=== PATIENT | male | born 1995 | race Caucasian/White ===

== ENCOUNTER 2018-09-07 22:56 | Emergency (ER) | payer OTHER, SELFPAY ==
[2018-09-07 22:56] VITALS: BP 148/76; PULSE 77; RESP 18; TEMP 36.8; O2SAT 98; BMI 30.9
--- NOTE | 2018-09-07 23:15 | ED.DCSUM_ITS ---
- ER Visit Summary Date of Service: 09/07/18 Chief Complaint: Dog bite right upper lip History of Present Illness: The patient is a 23 M no significant past medical history. Currently on no medications. Tetanus up-to-date. Patient was playing with his friends dog when the dog got excited and bit him in his right upper lip. This occurred within the last hour. He denies any other injuries. Physical Examination: Well-appearing young man. Vital signs are stable and afebrile. H EENT exam is of irregular laceration of the right upper lip with involvement of vermilion border. There is a moderate sized tissue deficit in which I believe some of the tissue was avulsed and is currently missing. There is mild oozing of blood. This will need to be repaired. There is no dental injury. Neck nontender. Lungs are clear. Heart regular rhythm no murmur. Chest nontender. Abdomen nontender. Patient moving all 4 extremities. No trauma to the extremities. Normal range of motion. Neurologically is awake and alert. The laceration will need closed due to cosmetic reasons. Test Results: None Emergency Department Course and Treatment: Procedure note: Right upper lip laceration with tissue avulsion. Locally anesthetized with plain lidocaine 1%. Cleaned using Shur-Clens washed and irrigated. Explored. Closed using 4 simple interrupted 5-0 Ethilon sutures. Proper hemostasis and wound closure was obtained. Patient understands long-term would expect a good result but if not to his satisfaction he can always follow-up with plastic surgery for wound revision as needed. Treatment Plan: Ice to the area. Keep the wound clean. Suture removal in 7 days. Watch for any signs of infection. Disposition: Discharge Impression: Right upper lip dog bite laceration with ER repair of 2.5 cm This note was generated with [employer] dictation software. It may contain incorrect words, spelling, and punctuation that were not noted in review of the chart prior to signing ED Disposition - Plan for ED Patient: Disposition: Home or Assisted Living Instructions: ED Bite Dog Referrals: Godwin Pena MD [Primary Care Provider] - 10 Day for suture removal Additional Instructions: Clean wound thoroughly twice daily with peroxide and water Ice to the area. Tylenol and Motrin for pain. Suture removal in 7 to 10 days. Watch for any signs of infection
[2018-09-07 23:45] VITALS: BP 132/74; PULSE 72; RESP 18; O2SAT 97
== END 2018-09-08 00:04 | disposition home or self-care (01) ==
LOC: ED 23:52
PROVIDERS: Emergency Provider Emergency Medicine; Family Provider Family Medicine; PCP Family Medicine
DX: S01.551A Open bite of lip, initial encounter (principal); W54.0XXA Bitten by dog, initial encounter; Y93.9 Activity, unspecified; Y92.9 Unspecified place or not applicable; Y99.9 Unspecified external cause status
CPT/HCPCS: 12011; 99283

== ENCOUNTER → 2019-02-08 09:53 | Outpatient (CLI) | payer OTHER, SELFPAY ==
--- NOTE | 2019-02-08 10:03 | RAD_ITS ---
STUDY: X-RAY - RIGHT WRIST REASON FOR EXAM: Male, 23 years old. TECHNIQUE: 3 view(s) of the wrist were obtained. COMPARISON: None. FINDINGS: Normal visualized distal radius and ulna. Normal radiocarpal articulation. Normal distal radioulnar articulation. Normal carpal bones. Normal carpal articulations. Normal carpometacarpal articulation of the thumb. Normal second through fifth carpometacarpal articulations. Normal visualized metacarpal bones. The soft tissue structures are unremarkable. There is no demonstrated acute fracture. RAD/Wrist min 3 Views IMPRESSION: Normal x-ray examination of the wrist. Electronically Signed: Ronel Crews MD at 1:12 EST , Service support ,
== END ==
PROVIDERS: Family Provider Family Medicine; PCP Family Medicine; Referring Provider Family Medicine; Visit Provider Family Medicine
DX: M65.4 Radial styloid tenosynovitis [de Quervain] (principal)
CPT/HCPCS: 73110

== ENCOUNTER 2019-04-25 16:00 | Outpatient (RCR) | payer OTHER, SELFPAY ==
--- NOTE | 2019-02-13 17:13 | HP.OTEVAL_ITS ---
Patient's Visit Information KARINA CARDONA is a 23 year old M, referred to Occupational Therapy by Rosario Figueredo MD, with a diagnosis of De Quevains.. 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 - Pain R thumb 0 Pain Intensity Range: 0, 9 - ROM Wrist: flexion R 0-78, L 0-81; ext R 0-49, L 0-54 MP: R 0-60, L 0-65 IP: R 0-67, L 0-66 Radial Abduction: R 0-35, L 0-43 Opposition: R 0-41, L -45 MP: WFL PIP: WFL DIP: WFL - Strength Animal Shelter Clerk: R 123, L 127 Lateral Pinch: R 13, L 16 Tripod Pinch: R 11, L 14 Tip-to-Tip Pinch: R 7, L 6 - Rehabilitation Rehabilitation Potential: Good - Anticipated Interventions Anticipated Interventions: A/AAROM/PROM, Strengthening, Edema Control, Scar Care, Massage, Triggerpoint Release, Modalities, Orthoses, Joint Protection/Energy Conservation, Ergonomic Education, Dynamic Sitting Balance, Fine Motor Coord/Sony, ADL Training, Education re assistive Equipment, Caregiver Training, Home Program - Visit Plan Frequency: 2x /Week Duration: 4 Weeks TEXT: Thank you for the opportunity to evaluate your patient. For Medicare and Medicare HMO plans, please review the plan of care and approve it. It will need to be FAXED BACK to us at [phone] for Medicare purposes. Please let me know if there are questions or concerns regarding this plan of care. Physician Signature: Date:
--- NOTE | 2019-02-15 07:48 | HP.OTEVAL ---
Patient's Visit Information JIAN CARDONA is a 23 year old M, referred to Occupational Therapy by Rosario Figueredo MD, with a diagnosis of De Quevains of R thumb. Date of Evaluation: 02/13/19 Occupational Therapist: Brooke Dawkins, OTR/L - Subjective Subjective: Jian arrived and noted that thumb pain has been ongoing for the last few months. He noted he has received two cortisone injections to right thumb and is to trial therapy as pain has started again. 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 - Pain R thumb 0 Pain Intensity Range: 0, 9 - Objective Objective/Observation: Increased tenderness and positive kourtney test of r thumb. Wekaness noted of r hand. - ROM Wrist: flexion R 0-78, L 0-81; ext R 0-49, L 0-54 MP: R 0-60, L 0-65 IP: R 0-67, L 0-66 Radial Abduction: R 0-35, L 0-43 Opposition: R 0-41, L -45 MP: WFL PIP: WFL DIP: WFL - Strength Specialist Managers: R 123, L 127 Lateral Pinch: R 13, L 16 Tripod Pinch: R 11, L 14 Tip-to-Tip Pinch: R 7, L 6 - Edema Other: Distal phalanx R 6.9 cm, L 6.9 cm - Quick DASH-Disab of Arm,Shoulder& Hand Quick DASH Score: 28.3325 - Goals Goal:: Jian to increase R chief operating engineer by 20 lbs to promote increased strength and stability needed to decrease pain of R thumb 4/5 trials 80% of the time by d/c. Goal:: Jian to be (I) to complete pain management methods to decrease R thumb pain 4/5 trials 80% of the time by d/c. Goal:: Jian to be (i) to complete correct thumb ergonomics and position with repetitive gripping related job and ADL related tasks 4/5 trials 80% of the time by d/c. Goal:: Jian to be (i) to complete repetitive hammering tasks 4/5 trials 80% of the time to promote increased ergonomic and position of R thumb to decrease pain and promote returning to PLOF by d/c. Goal:: Jian to be (I) to complete daily HEP as tolerated to r hand and thumb to promote stability, strength, and function of R hand needed for ADL/IADls by d/c. - Rehabilitation General Assessment: Jian completed OT evaluation on this date of 02/13/19. He has received two cortisone injections to right thumb due to de Quervains syndrome. He has been referred to OT as increased symptoms of right thumb persist but are less intense. Skilled OT warranted to promote thumb stability, radial strengthening, ROM, pain and edema management, and ergonomic training to promote returning to PLOF for all ADL/IADls by d/c. Rehabilitation Potential: Good - Anticipated Interventions Anticipated Interventions: A/AAROM/PROM, Strengthening, Edema Control, Scar Care, Massage, Triggerpoint Release, Modalities, Orthoses, Joint Protection/Energy Conservation, Ergonomic Education, Dynamic Sitting Balance, Fine Motor Coord/Sony, ADL Training, Education re assistive Equipment, Caregiver Training, Home Program - Visit Plan Frequency: 2x /Week Duration: 4 Weeks General Plan: Skilled OT warranted to promote increased strength, ROM, pain and edema management, ergonomic and wrist outboard motors experimental mechanic training, and general ability to return to PLOF for all ADL/IADLs tasks by d/c. TEXT: Thank you for the opportunity to evaluate your patient. For Medicare and Medicare HMO plans, please review the plan of care and approve it. It will need to be FAXED BACK to us at [phone] for Medicare purposes. Please let me know if there are questions or concerns regarding this plan of care. Physician Signature: Date:
--- NOTE | 2019-03-28 15:34 | OTREVAL_ITS ---
Rosario Figueredo MD, It has been my pleasure to treat JIAN CARDONA over the last 8 visits for De Quevains of R thumb. Please see the progress note below for an update on the occupational therapy plan of care! Subjective: Arrived and noted that things are going well but still dull ache around R thumb observed. Considering where pain was the dull ache is better. Feels about 90% back to PLOF. Objective/Function: Completed reassessment on this date of 03/28/19: ROM: thumb. - opposition R 0-34, L WFL. - radial adduction R 0-44, L WFL. - MP R 0-56, L WFL. - IP R -27-0-76, L WFL. Strength: - lead etl developer R 137, L 135 lbs. - lateral R 24, L 24 lbs. - three jaw gabriel R 17, L 20 lbs. - pincer R 12, L 13 lbs. Strength as of 03/13/19: Strength: - lead etl developer R 126, L 128. - lateral R 24, L 28. - tripod R 20, L 21. - pincer R 16, L 13. Some mild tenderness around snuff box. Plan Frequency: 1x/Week Duration: month or before if needed Visits in this POC: 9 Plan: He is to have 1x follow-up in 4 weeks or before if needed. He is to continue to decrease splint usage while continuing to ice as needed. He is to upgrade to KT tape for basketball tasks and work as needed. He is already out of splint for work tasks but still getting achy of occasion. He isn?t 100% satisfied with the achiness he is getting and to trial methods discussed today and follow up as needed in a month or before. He has OT contact info t reach as needed. He has made considerable progress from where he started. Goals - Goals Goal:: Jian to increase R lead etl developer by 20 lbs to promote increased strength and stability needed to decrease pain of R thumb 4/5 trials 80% of the time by d/c. Goal:: Jian to be (I) to complete pain management methods to decrease R thumb pain 4/5 trials 80% of the time by d/c. Goal:: Jian to be (i) to complete correct thumb ergonomics and position with repetitive gripping related job and ADL related tasks 4/5 trials 80% of the time by d/c. Goal:: Jian to be (i) to complete repetitive hammering tasks 4/5 trials 80% of the time to promote increased ergonomic and position of R thumb to decrease pain and promote returning to PLOF by d/c. Goal:: Jian to be (I) to complete daily HEP as tolerated to r hand and thumb to promote stability, strength, and function of R hand needed for ADL/IADls by d/c. Anticipated Interventions Anticipated Interventions: A/AAROM/PROM, Strengthening, Edema Control, Scar Care, Massage, Triggerpoint Release, Modalities, Orthoses, Joint Protection/Energy Conservation, Ergonomic Education, Dynamic Sitting Balance, Fine Motor Coord/Sony, ADL Training, Education re assistive Equipment, Caregiver Training, Home Program Please do not hesitate to contact me at [phone] by phone or if you have questions or concerns regarding this new plan of care! Sincerely, Brooke Dawkins OTR/L
--- NOTE | 2019-04-25 16:31 | HP.OTDCSUM_ITS ---
HP - OT D/C Summary It has been my pleasure to treat KARINA CARDONA under orders from Dr. Rosario Figueredo MD, for the diagnosis of De Quevains of R thumb for a total of 9 visit(s). Please see the following information for a summary of their discharge status. - Overall Improvement % Improvement: 85 - Objective Objective/Function: Completed measurements on this date 04/25/19 as results are as follows: Strength: - grapple skidder operator R 139, L 141. - lateral R 27, L 23. - tripod R 20, L 23. - pincer R 12, L 14. Tenderness noted but pain is managable. - Goals Patient Goals: Regain Mobility, Regain Strength, Decrease Pain, Return to Work, Decrease Swelling/Stiffness, Improve Fine Motor Skills, Use Hand/Wrist/Arm Normally Again, Sleep Better, Decrease Tingling/Numbness, Increase ROM, Be More Independent in ADLS, Resume Former Household Responsibilities (Cooking,Cleaning,Yard, etc.), Resume Hobbies Goal:: Karina to increase R grapple skidder operator by 20 lbs to promote increased strength and stability needed to decrease pain of R thumb 4/5 trials 80% of the time by d/c. Goal:: Karina to be (I) to complete pain management methods to decrease R thumb pain 4/5 trials 80% of the time by d/c. Goal:: Karina to be (i) to complete correct thumb ergonomics and position with repetitive gripping related job and ADL related tasks 4/5 trials 80% of the time by d/c. Goal:: Karina to be (i) to complete repetitive hammering tasks 4/5 trials 80% of the time to promote increased ergonomic and position of R thumb to decrease pain and promote returning to PLOF by d/c. Goal:: Karina to be (I) to complete daily HEP as tolerated to r hand and thumb to promote stability, strength, and function of R hand needed for ADL/IADls by d/c. - Plan Plan: Karina will be d/c'd at this time. He noted pain is manageable and short lasting but still present about 3-5 x daily and if he deems it unmanageable and getting worse he is to follow up with doctor. - D/C Information If there are questions or concerns regarding this patient's occupational therapy, please fell free to call me at [phone]. Thank you for the referral of this patient. Sincerely, Brooke Dawkins OTR/L
== END 2019-04-25 19:00 | disposition home or self-care (01) ==
LOC: OT 16:00
PROVIDERS: Family Provider Family Medicine; PCP Family Medicine; Referring Provider Family Medicine; Visit Provider Family Medicine
DX: M65.4 Radial styloid tenosynovitis [de Quervain] (principal)
CPT/HCPCS: 97110; 97166; 97168; 97530; 97760